=== PATIENT | female | born 1995 | race Caucasian/White ===

== ENCOUNTER 2016-06-01 21:33 | Emergency (ER) | payer SELFPAY ==
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
--- NOTE | 2016-06-02 01:59 | ED MAR SUMMARY ---
..... Medication Administration Record [facility] [address], [place] [id number] Patient: ANTONIO SIMEON Visit ID: [id number] 21y, F Weight: 90.7 kg Height/Length: 62 in BMI: 36.6 ALLERGIES: No Known Drug Allergy
--- NOTE | 2016-06-02 01:59 | ED MAR SUMMARY ---
..... Medication Administration Record Located Within [facility] [address] [place], [place] [id number] Patient: ANTONIO SIMEON Visit ID: [id number] 21y, F Weight: 90.7 kg Height/Length: 62 in BMI: 36.6 ALLERGIES: No Known Drug Allergy
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
--- NOTE | 2016-06-02 02:00 | ED MED RECONCILIATION SUMMARY ---
Patient: ANTONIO SIMEON Medication Reconciliation Report [facility] VisitID: [id number] [place] [address] 21y, F Registration Date/Time: 06/01/2016 Weight: 90.7 kg Height/Length: 62 in. BMI: 36.6 ALLERGIES: No Known Drug Allergy The patient's Home Medications are listed below: NONE. The source(s) of the original Home Medication information: Not obtained. The following Medications were given to the patient in the Emergency Department: None. The following Medications were prescribed to the patient: Ultram 50 mg tablets: take 1-2 orally every 6 hours as needed for pain. Dispense twenty (20). No refills. Substitution is permissible. -- Mary Polk A.R.N.P.
== END 2016-06-01 22:35 | disposition home or self-care (01) ==
LOC: ED SRH 21:33
DX: S00.12XA Contusion of left eyelid and periocular area, initial encounter (principal); S30.810A Abrasion of lower back and pelvis, initial encounter; F10.129 Alcohol abuse with intoxication, unspecified; Y04.8XXA Assault by other bodily force, initial encounter; Y93.89 Activity, other specified; Y99.8 Other external cause status; Y92.002 Bathroom of unspecified non-institutional (private) residence as the place of occurrence of the external cause; I10 Essential (primary) hypertension